=== PATIENT | female | born 1975 | race Hispanic/Latino ===

== ENCOUNTER 2017-06-16 14:14 | Emergency (ER) | payer SELFPAY ==
[2017-06-16 14:23] VITALS: BP 135/92
--- NOTE | 2017-06-16 15:52 | Emergency Department Report ---
- General Chief complaint: Skin Rash Stated complaint: RASH RIGHT FLANK Time Seen by Provider: 06/16/17 15:48 Source: patient Mode of arrival: Ambulatory Limitations: No Limitations - History of Present Illness Initial comments: 42-year-old female past medical history headaches/migraines presents with complaint of itchy burning rash to right side flank which started 2 days ago. Has begun to form a small vesicles on skin as per patient. Patient denies fevers chills cough nausea or vomiting. States skin is extremely sensitive and painful. MD complaint: rash Onset/Timin -: days(s) Location: chest, back Severity: moderate Severity scale (0 -10): 8 Quality: burning Consistency: constant Worsens with: none Context: none Associated symptoms: denies other symptoms Treatments Prior to Arrival: none - Related Data Previous Rx's Medication Instructions Recorded Last Taken Type HYDROcodone/ACETAMINOPHEN [Colon 1 each PO Q6HR #20 tablet 06/05/13 Unknown Rx 5/325 Tablet] predniSONE [Deltasone] 50 mg PO QDAY #5 tab 06/05/13 Unknown Rx Acyclovir [Zovirax Tab] 400 mg PO Q8H #21 tab 06/16/17 Unknown Rx traMADol [Ultram 50 MG tab] 50 mg PO Q6HR PRN #15 tablet 06/16/17 Unknown Rx Allergies Allergy/AdvReac Type Severity Reaction Status Date / Time ketorolac tromethamine Allergy Nausea Verified 06/05/13 13:44 [From Toradol] naproxen [From Naprosyn] Allergy Nausea Verified 06/05/13 13:44 Abscess Boil HPI - HPI Chief Complaint: Skin Rash Stated Complaint: RASH RIGHT FLANK Time Seen by Provider: 06/16/17 15:48 Home Medications: Previous Rx's Medication Instructions Recorded Last Taken Type HYDROcodone/ACETAMINOPHEN [Colon 1 each PO Q6HR #20 tablet 06/05/13 Unknown Rx 5/325 Tablet] predniSONE [Deltasone] 50 mg PO QDAY #5 tab 06/05/13 Unknown Rx Acyclovir [Zovirax Tab] 400 mg PO Q8H #21 tab 06/16/17 Unknown Rx traMADol [Ultram 50 MG tab] 50 mg PO Q6HR PRN #15 tablet 06/16/17 Unknown Rx Allergies/Adverse Reactions: Allergies Allergy/AdvReac Type Severity Reaction Status Date / Time ketorolac tromethamine Allergy Nausea Verified 06/05/13 13:44 [From Toradol] naproxen [From Naprosyn] Allergy Nausea Verified 06/05/13 13:44 ED Review of Systems ROS: Stated complaint: RASH RIGHT FLANK Other details as noted in HPI Constitutional: denies: chills, fever Eyes: denies: eye pain, eye discharge, vision change ENT: denies: ear pain, throat pain Respiratory: denies: cough, shortness of breath, wheezing Cardiovascular: denies: chest pain, palpitations Endocrine: no symptoms reported Gastrointestinal: denies: abdominal pain, nausea, diarrhea Genitourinary: denies: urgency, dysuria, discharge Musculoskeletal: denies: back pain, joint swelling, arthralgia Skin: as per HPI, rash, lesions Neurological: denies: headache, weakness, paresthesias Psychiatric: denies: anxiety, depression Hematological/Lymphatic: denies: easy bleeding, easy bruising ED Past Medical Hx - Past Medical History Hx Headaches / Migraines: Yes - Surgical History Hx Appendectomy: Yes Additional Surgical History: tonsilectomy - Social History Smoking Status: Never Smoker Substance Use Type: None - Medications Home Medications: Home Medications Medication Instructions Recorded Confirmed Last Taken Type HYDROcodone/ACETAMINOPHEN [Colon 1 each PO Q6HR #20 tablet 06/05/13 Unknown Rx 5/325 Tablet] predniSONE [Deltasone] 50 mg PO QDAY #5 tab 06/05/13 Unknown Rx Acyclovir [Zovirax Tab] 400 mg PO Q8H #21 tab 06/16/17 Unknown Rx traMADol [Ultram 50 MG tab] 50 mg PO Q6HR PRN #15 tablet 06/16/17 Unknown Rx ED Physical Exam - General Limitations: No Limitations General appearance: alert, in no apparent distress - Head Head exam: Present: atraumatic, normocephalic - Eye Eye exam: Present: normal appearance - ENT ENT exam: Present: mucous membranes moist - Neck Neck exam: Present: normal inspection - Respiratory Respiratory exam: Present: normal lung sounds bilaterally. Absent: respiratory distress - Cardiovascular Cardiovascular Exam: Present: regular rate, normal rhythm. Absent: systolic murmur, diastolic murmur, rubs, gallop - GI/Abdominal GI/Abdominal exam: Present: soft, normal bowel sounds - Extremities Exam Extremities exam: Present: normal inspection - Back Exam Back exam: Present: normal inspection - Neurological Exam Neurological exam: Present: alert, oriented X3 - Psychiatric Psychiatric exam: Present: normal affect, normal mood - Skin Skin exam: Present: warm, dry, intact, normal color. Absent: rash - Expanded Skin Exam Expanded Description of rash: Present: vesicular, blisters 1 - Erythematous vesicular rash following a dermatome here ED Course Vital Signs 06/16/17 14:18 Temperature 98.7 F Pulse Rate 98 H Respiratory 16 Rate Blood Pressure 135/92 O2 Sat by Pulse 100 Oximetry ED Medical Decision Making - Medical Decision Making A/P: Shingles rash 1-course of acyclovir as per [email or web address] recommendations for first outbreak [email or web address]=search_[email or web address]~[email or web address]&usage_type=default&display_ rank=1 2-short course tramadol. Patient states that she has taken NSAIDs Vicodin and Percocet with rash and nausea in the past. States that she has not had adverse reactions tramadol 3-follow-up with primary care Critical care attestation.: If time is entered above; I have spent that time in minutes in the direct care of this critically ill patient, excluding procedure time. ED Disposition Clinical Impression: Shingles rash Qualifiers: Herpes zoster complications: without complications Qualified Code(s): B02.9 - Zoster without complications Disposition: DC-01 TO HOME OR SELFCARE Is pt being admited?: No Does the pt Need Aspirin: No Condition: Stable Instructions: Herpes Zoster (ED) Prescriptions: Acyclovir [Zovirax Tab] 400 mg PO Q8H #21 tab traMADol [Ultram 50 MG tab] 50 mg PO Q6HR PRN #15 tablet PRN Reason: Pain Referrals: JUAN JOSE VASQUEZ MD [Primary Care Provider] - 3-5 Days [facility] [Outside] - 3-5 Days [facility] [Outside] - 3-5 Days Time of Disposition: 15:53
== END 2017-06-16 16:15 | disposition home or self-care (01) ==
LOC: ED 14:14
DX: B02.9 Zoster without complications (principal); G43.909 Migraine, unspecified, not intractable, without status migrainosus; Z88.1 Allergy status to other antibiotic agents; Z88.6 Allergy status to analgesic agent
CPT/HCPCS: 99282